=== PATIENT | female | born 2000 | race Caucasian/White ===

== ENCOUNTER 2022-01-18 03:38 | Emergency (ER) | payer MEDICAID ==
[~2022-01-18] VITALS: Ht 160 cm; Wt 65.5 kg
[2022-01-18 04:04] VITALS: BP 115/81
== END 2022-01-18 06:56 | disposition left against medical advice (07) ==
LOC: ER 03:38
DX: Z53.21 Procedure and treatment not carried out due to patient leaving prior to being seen by health care provider (principal)